=== PATIENT | female | born 1985 | race African-American/Black ===

== ENCOUNTER 2021-08-05 11:59 | Emergency (ER) | payer OTHER ==
[~2021-08-05] VITALS: Ht 160 cm; Wt 132.0 kg
[2021-08-05 12:54] LABS: HEMATOCRIT 40.3 % (37.0-47.0); HEMOGLOBIN 13.2 gm/dL (12.0-15.0); MCH 28.7 pg (26.0-34.0); MCHC 32.8 g/dL (28.0-37.0); MCV 87.6 fL (80.0-100.0); NUCLEATED RBCS 0 /100WBC; PLATELET COUNT* 309 thou/uL (150-400); RDW-CV 13.8 % (10.5-14.5)
[2021-08-05 13:03] LABS: CALCIUM 8.8 mg/dL (8.5-10.1); CREATININE 0.7 mg/dL (0.6-1.3); POTASSIUM 3.9 mmol/L (3.5-5.1)
[2021-08-05 13:07] LABS: ALBUMIN 3.4 g/dL (3.4-5.0); TOTAL BILIRUBIN 0.3 mg/dL (<0.1-1.0); TOTAL PROTEIN 8.5 g/dL (6.4-8.2)
[2021-08-05 13:38] LABS: ABSOLUTE EOSINOPHILS 0.1 thou/uL (0.0-0.7); ABSOLUTE LYMPHOCYTES 2.5 thou/uL (0.8-5.3); ABSOLUTE MONOCYTES 0.5 thou/uL (0.0-1.2); GIANT PLATELETS FEW
[2021-08-05 16:43] LABS: URINE BILIRUBIN NEGATIVE (Negative); URINE BLOOD NEGATIVE (Negative); URINE CLARITY CLEAR; URINE COLOR YELLOW; URINE GLUCOSE-RANDOM NEGATIVE (Negative); URINE KETONES NEGATIVE (Negative); URINE LEUKOCYTES-REFLEX NEGATIVE (Negative); URINE NITRITE-REFLEX NEGATIVE (Negative); URINE PROTEIN NEGATIVE (Negative); URINE SPECIFIC GRAVITY 1.015 (1.005-1.030); URINE UROBILINOGEN 0.2 E.U./dl (0.2-1.0)
[2021-08-05] MEDS ORDERED: TESSALON PERLE100 MG PO (17:27)
[2021-08-05] MEDS ORDERED: PROAIR HFA8.5 GM INH (17:27)
[2021-08-05 17:50] VITALS: BP 136/75
--- NOTE | 2021-08-06 11:17 | EKG ---
[place] [address] ELECTROCARDIOGRAM REPORT Name: BARTOLO MONSIVAIS Room: [facility]#: [id number] Admission: 08/05/21 Attend Phys: Discharge: 08/05/21 Date of : 83 Date of Service: 08/05/21 1206 Report #: [id number] THIS REPORT FOR: //name// [facility] ED Test Date: 2021-08-05 Test Time: 12:06:48 Pat Name: BARTOLO MONSIVAIS Department: Room: Gender: F Paramedic Rn: TDS : 1985 Requested By: Anil Posada Order Number: [id number] MD: Pop Damon Measurements Intervals [place] Rate: 102 P: 45 [place]: 147 QRS: 42 QRSD: 86 T: -5 QT: 347 QTc: 453 Interpretive Statements Sinus tachycardia Borderline T abnormalities, anterior leads No previous ECG available for comparison Electronically Signed On 08-06-2021 11:16:59 [employer] by Pop Damon [email or web address] <ELECTRONICALLY SIGNED> By: Pop Damon MD, [facility] 08/06/21 1116 05 Pop Damon MD, FACC /EPI
== END 2021-08-05 17:50 | disposition home or self-care (01) ==
LOC: M.ERS 11:59
PROVIDERS: Physician Assistant Medical
DX: U07.1 COVID-19 (principal); Z88.5 Allergy status to narcotic agent